=== PATIENT | female | born 1970 | race Caucasian/White ===

== ENCOUNTER 2018-12-27 06:26 | Outpatient (CLI) | payer OTHER ==
--- NOTE | 2018-12-27 07:53 | ULT ---
Sonogram abdomen complete HISTORY: Abnormal liver function tests. FINDINGS: Shadowing stones and nonshadowing sludge are present within the incompletely distended gall bladder lumen. No convincing gallbladder wall thickening or pericholecystic fluid. Common duct is 0.5 cm. Liver has a heterogeneous echotexture without focal abnormalities. No free fluid. Extrarenal pelvis right kidney. The spleen, left kidney, and visualized portions of IVC, and pancreas are within normal limits. Calcification in the aorta. IMPRESSION: Cholelithiasis. No evidence of acute biliary obstruction. Atherosclerosis.
== END 2018-12-27 06:27 | disposition home or self-care (01) ==
LOC: BICULT 06:26
PROVIDERS: ATTEND Physician Assistant
DX: R94.5 Abnormal results of liver function studies (principal); K80.20 Calculus of gallbladder without cholecystitis without obstruction; I70.0 Atherosclerosis of aorta
CPT/HCPCS: 76700

== ENCOUNTER 2021-03-30 12:58 | Outpatient (CLI) | payer OTHER | END 2021-03-30 12:59 | disposition home or self-care (01) | LOC: BICMAMMO 12:58 | PROVIDERS: ATTEND Physician Assistant | DX: Z12.31 Encounter for screening mammogram for malignant neoplasm of breast (principal); Z80.3 Family history of malignant neoplasm of breast | CPT/HCPCS: 77063; 77067 ==